=== PATIENT | female | born 1995 | race Asian ===

== ENCOUNTER → 2021-06-29 | Outpatient (CLI) | payer OTHER ==
--- NOTE | 2021-06-29 16:37 | Diagnostic Imaging Report ---
INDICATION: Lump left breast. Sonographic interrogation of the area of lump in left breast was performed. This corresponds to the 9 o'clock location. There is a circumscribed, macrolobulated hypoechoic mass at the 9 o'clock location, 4 cm from the nipple. This appears solid. This measures 3.0 x 1.4 x 2.1 cm. There is some vascularity along the margins. No posterior acoustic shadowing is seen. Features are most suggestive of a fibroadenoma. No other masses are seen. IMPRESSION: Macrolobulated, circumscribed hypoechoic solid mass at the 9 o'clock location of the left breast corresponding to the palpable abnormality. This has features most consistent with a fibroadenoma. Followup left breast ultrasound in 6 months is recommended to show continued stability. BI-RADS Category 3 ACR BI-RADS Category 3: Probably benign findings. Result letter will be mailed to the patient. Note: At least 10% of breast cancer is not imaged by mammography. Dictated by: Dictated on workstation # [id number]
== END ==
LOC: RAD 14:15
PROVIDERS: ATTEND Nurse Practitioner Primary Care
DX: N63.20 Unspecified lump in the left breast, unspecified quadrant (principal)
CPT/HCPCS: 76642